=== PATIENT | male | born 1965 | race Caucasian/White ===

== ENCOUNTER 2023-05-11 07:38 | Outpatient (CLI) | payer OTHER, SELFPAY | END 2023-05-11 07:39 | disposition home or self-care (01) | LOC: INJ CL 07:39 | PROVIDERS: PCP Family Medicine; Visit Provider Family Medicine | DX: M54.16 Radiculopathy, lumbar region (principal); M51.36 Other intervertebral disc degeneration, lumbar region | CPT/HCPCS: 62323; J0702; Q9966 ==

== ENCOUNTER 2025-02-12 16:59 | Emergency (ER) | payer OTHER, SELFPAY ==
--- OUTSIDE RECORDS SUMMARY | 2025-02-12 17:02 | XMS_ITS | Clinical Summary ---
Author Organization [facility] Address [address] [place] [id number] Care Team Providers Care Selling Underwriter Name Role Phone Olga Solis MD Primary Care Provide r Allergies Active Allergy Reactions Criticality Noted Date Comments Ampicillin Hives High 07/29/2004 Atorvastatin Myalgia 08/10/2016 Nut - Unspecified Shortness Of Breath 8 Medications cetirizine (ZYRTEC) 10 mg tablet Take 1 tablet by mouth once daily. 0 016 Active CPAPIndications:O SA (obstructive sleep apnea) t CPAP machine for home use at pressure: 5-16 cmw , Heated humidifier x 1 q 5 yr, Humidifier chamber x 1 q 6 mo, Full face mask x1 q 3mos, with cushion x 1 q mo, Heated tubing x 1 q 3 mo, Headgear x 1 q 6 mo, Filters: Disposable x 2 q mo non-disposable filters x1 q 6mo, Length of Need: 99 months, Frequency of use: Daily 1 Device 11 020 Active gabapentin (NEURONTIN) 300 mg capsuleIndication s:Lumbar radiculopathy Take 1 Capsule (300 mg) by mouth at bedtime. 30 Capsule 3 024 Active EPINEPHrine (EPIPEN) 0.3 mg/0.3 mL auto-injectorIndi cations:Tree nut allergy Inject 0.3 mg (1 Pen) intramuscular each time if needed for Allergic Reaction. 2 Each 3 024 Active pantoprazole (PROTONIX) 40 mg delayed-release tabletIndications :Chronic GERD TAKE 1 TABLET (40 MG) BY MOUTH ONCE DAILY BEFORE A MEAL. IN PLACE OF PEPCID 90 Tablet 3 025 Active rosuvastatin (CRESTOR) 10 mg tabletIndications :Hyperlipidemia, unspecified hyperlipidemia type TAKE 1 TABLET BY MOUTH EVERY DAY 90 Tablet 1 025 Active celecoxib 200 mg capsuleIndication s:DDD (degenerative disc disease), lumbar TAKE 1 CAPSULE (200 MG) BY MOUTH 2 TIMES DAILY IF NEEDED FOR PAIN. 60 Capsule 1 025 Active CPAPIndications:O SA (obstructive sleep apnea) RESMED CPAP (E0601) machine for home use at pressure: 5-16 cmw , Choice of mask (A7030 or A7034) w/full face cushion (A7031) x1/mo, nasal cushion (A7032) x2/mo, or nasal pillows (A7033) x 2/mo; Length of Need: 99 months; Frequency of use: Daily 1 Each 3 025 Active celecoxib (CELEBREX) 200 mg capsuleIndication s:DDD (degenerative disc disease), lumbar Take 1 Capsule (200 mg) by mouth 2 times daily if needed for Pain. 60 Capsule 1 024 2024 Discontinued Active Problems Problem Noted Date Diagnosed Date Colon polyp 01/06/2024 Overview (01/06/2024): Colonoscopy 12/2023 TA, repeat in 5 years Facet arthropathy, cervical 11/26/2019 Headache, cervicogenic 11/26/2019 Primary osteoarthritis of both hands 05/26/2016 Vitamin D deficiency 01/18/2016 Overview (07/16/2017): Overview: level of 16 plan 5,000 I.U. otc Vitamin D3 daily then recheck vitamin D level in 2 months: Food allergy 11/29/2013 Overview (07/16/2017): Overview: peanut, almond, filbert, walnut on test Avoid pitted fruits Cook vegetables, carrots Most recent allergy testing with Dr. Kay August 10, 2016 Allergic rhinitis 09/01/2008 Overview (07/16/2017): Overview: trees on skin tests ; Allergy Seasonal Hyperlipidemia 01/04/2006 Migraine 03/17/2003 Overview (07/16/2017): Overview: onset [address] normal ; Migraine Without Aura Encounters Date Type Department Care Team Description 02/12/2025 Nurse Triage [facility] [address] [place] [address] Olga Solis MD Chest Pain 01/25/2025 Telephone [facility] [address] [place] [address] Olga Solis MD Form (CPAP) 01/13/2025 Refill [facility] [address] [place] [address] Jaime Zavaleta MD Refill Request (Celecoxib) 12/09/2024 Refill [facility] [address] [place] [address] Olga Solis MD Refill Request (Rosuvastatin) from Last 3 Months Immunizations Immunization Administration Dates Next Due AMB Influenza, IIV3 (Age >=3 years)(Flu Clinic Only) 07/19/2009 DT (Age < 7 years) 02/28/1989,11/19/1978 DTP 02/28/1989,11/19/1978 Hepatitis A (Adult) 04/12/2001,09/07/2000 Hepatitis A (Peds),Unspecified 04/12/2001,1999 Hepatitis B (Adult) 04/12/2001,11/09/2000,1999 Hepatitis B (Peds) 04/12/2001,09/07/2000 Hepatitis B, Unspecified 04/12/2001 Inactivated Polio Vaccine 11/09/2000 Influenza A (H1N1), Inactivated 10/11/2009,08/21 Influenza RIV4 (Age 18+ Year s) PRESERV FREE 07/15/2022 Influenza Virus, Unspecified 07/30/2017, 08/10/2016,07/11/2013,2008,07/17/2008,07/17/2008 Influenza, High-dose Inactivated 07/31/2018 Influenza, IIV3 (Age 6-35 mos) 07/31/2014,2012,08/07/2011 Influenza, IIV3 (Age >=3 years) 07/21/20 19,09/24/2012,07/15/2010,2008,09/07/2007,08/19/2002 Influenza, IIV4 08/12/2023,08/10/2016 Influenza, IIV4 (=>6mos) MDV 08/10/2020,07/30/20 17 Influenza, IIV4 (Age 6-35 Mos) 07/11/2013 Influenza,CCIIV4 PRESERV FREE 07/14/2018 Td (Age >=7 Years) 04/15/2016,05/05/2000 Tdap 04/15/2016,01/04/2006 Zoster (Shingrix-RZV, recombinant) 04/14/2022, Family History Medical History Relation Name Comments Cancer Brother Coronary artery disease Brother Migraines Brother Coronary artery disease Father Diabetes Father Hyperlipidemia Father Hypertension Father Stroke Father Cancer-breast Mother Multiple myeloma Other Other Other no spine/neck p roblems Migraines Sister Relation Name Status Comments Brother Father Mother Other Sister Social History Tobacco Use Types Packs/Day Years Used Date Smoking Tobacco: Never Smokeless Tobacco: Never Tobacco Cessation:Counseling Given: Yes Alcohol Use Standard Drinks/Week Comments Yes 2 (1 standard drink = 0.6 oz pur e alcohol) occ PHQ-2 Answer Date Recorded PHQ-2 TOTAL SCORE 1 07/18/2024 Social Connections Answer Date Recorded Do you often feel lonely or isolated from those around you? 0 11/19/2023 Financial Resource Strain Answer Date R ecorded Difficulty of Paying Living Expenses 3 11/19/2023 Difficulty of Paying Living Expenses Not on file 11/19/2023 Food Insecurity Answer Date Recorded Do you worry your food will run out before you are able to buy more? 1 11/19/2023 Transportation Needs Answer Date Record ed Does lack of transportation keep you from medica l appointments? 1 11/19/2023 Does lack of transportation keep you from work, meetings or getting things that you need? 1 11/19/2023 Housing Stability Answer Date Recorded What is your housing situation today? 1 11/19/2023 Utilities Answer Date Recorded Do you have trouble paying f or utilities (for example, heat, electricity, water, phone)? 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 Not on file Not on file Not on file Obstetrics History Last Filed Vital Signs Vital Sign Reading Time Taken Comments Blood Pressure 105/72 07/18/2024 7:34 AM CDT Pulse 68 07/18/2024 7:34 AM CDT Temperature 37.8 C (100.1 F) 05/25/2024 8:07 AM CDT Respiratory Rate 12 01/04/2024 9:24 AM CDT Oxygen Saturation 98% 07/18/2024 7:34 AM CDT Inhaled Oxygen Concentration - - Weight 89.8 kg (198 lb) 07/18/2024 7:34 AM CDT Height 183.5 cm (6' 0.25) 11/19/2023 8:07 AM CS T Body Mass Index 26.67 11/19/2023 8:07 AM MONITOR WORKER Plan of Treatment Upcoming Encounters Date Type Department Care Team (Late st Contact Info) Description 03/09/2025 8:25 AM CDT Office Visit [facility] [address] [place] [address] Olga Solis MD [address] [place] [address] 05/03/2025 3:30 PM CDT Office Visit [facility] [address] [place] [address] Froy Grace MD [address] [place] [address] Health Maintenance Due Date Last Done Comments Pneumococcal series for age 50+ (1 of 1 - PCV) 2014 COVID-19 vaccine series (2023- season) 2024 08/12/2023, 07/15/2022, 09/05/2021, Additional history exists BMI (ht and wt on same day) for age 18+ 11/19/2024 11/19/2023, 10/07/2022, 10/17/2021, Additional history exists RSV vaccine for adults or (1 - Risk 60-74 years 1-dose series) 2024 Influenza Vaccine (Season Ended) 2025 08/12/2023, 07/15/2022, 08/10/2020, Additional history exists Depression screening for age 12+ 07/18/2025 07/18/2024, 07/18/2024, 02/26/2023, Additional history exists Tetanus booster 04/15/2026 04/15/2016, 07/0 03/2016, 01/04/2006, Additional history exists Lipids for age 45-75 11/19/2028 11/19/2023, 02/26/2023, 10/17/2021, Additional history exists Colonoscopy through age 75 01/03/2029 01/04/2024, Tdap Completed 04/15/2016, 01/04/2006 Hepatitis C screening for ag e 18-79 Completed 10/17/2021 Zoster (shingles) series for age 50+ Completed 04/14/2022, 10/17/2021 HIV for age 15-65 Completed 02/26/2023 Procedures Procedure Name Priority Date/Time Associated Diagnosis Comments COLONOSCOPY 01/04/2024 8:28 AM CDT LIPID PANEL W REFLEX MEASURED LDL Routine 11/19/2023 9:05 AM MONITOR WORKER Hyperlipidemia, unspecified hyperlipidemia type LC HIV-1/O/2, 4TH GENERATION Routine 02/26/2023 11:04 AM CDT Screening for HIV (human immunodeficiency virus) ANTI HCV Routine 10/17/2021 10:15 AM MONITOR WORKER Encounter for hepatitis C screening test for low risk patient from Last 3 Months or Most Recently Relevant to Health Maintenance Results * COLONOSCOPY (01/04/2024 8:28 AM CDT) 01/04/2024 8:28 AM CDT Narrative Transcriptions De Dietz MD - 01/04/2024 9:14 AM CDT Patient Name: Fernando Mera Procedure Date: 01/04/2024 Gender: Male Date of : 1965 Admit Type: Outpatient Procedure: Colonoscopy Proceduralist: De Dietz MD , Ernestina Tucker (Nurse), Jennifer Rangel (Nurse) Indications/Pre-Op Diagnosis: Screening for colorectal malignant neoplasm, Last colonoscopy: date unknown (unable to locate last colonoscopy report) Medications: Fentanyl 100 micrograms IV, Midazolam 4 mgIV, The level of sedation administered wasmoderate Procedure Description: The patient had risks, benefits and alternatives explained to andgave informed consent. The patient had a stable cardiopulmonary status and judged an adequate candidate for conscious sedation. The endoscope PCF-H190L [id number] was passed through the anus andadvanced to the cecum, identified by appendiceal orifice and ileocecal valve.The colonoscopy was performed without difficulty. The patient toleratedthe procedure well. The quality of the bowel preparation was good. Anatomical landmarks were photographed. Complications: No immediate complications. Estimated Blood Loss & Specimen: Estimated blood loss: none. Specimen collected - Yes and sent to Laboratory Findings: The perianal and digital rectal examinations were normal. A 4 mm polyp was found in the descending colon. The polyp wassessile. The polyp was removed with a cold snare. Resection and retrieval were complete. The exam was otherwise without abnormality. Impressions/Post-Op Diagnosis: - One 4 mm polyp in the descending colon, removed with a cold snare. Resected and retrieved. - The examination was otherwise normal. Recommendation: - Patient has a contact number available for emergencies. The signsand symptoms of potential delayed complications were discussed with the patient. Return to normal activities tomorrow. Written discharge instructions were provided to the patient. - Resume previous diet. - Continue present medications. - Await pathology results. Moderate Sedation: A time out was performed before the procedure. Moderate (conscious) sedation was administered by the endoscopy nurse and supervised bythe endoscopist. The following parameters were monitored: oxygensaturation, heart rate, blood pressure, EKG, CO2, respiratory rate, adequacy of pulmonary ventilation and reponse to care. Please refer to the patient's medical record flowsheets and nursing notes for moderate sedation details. Total physician intraservice time was 15 minutes. De Dietz MD 01/04/2024 9:14:30 AM This report has been signed electronically. Note Initiated On: 01/04/2024 8:28 AM Procedure Code(s): --- Professional --- 62460, Colonoscopy, flexible; with removalof tumor(s), polyp(s), or other lesion(s) bysnare technique CPT copyright 2021 [employer]. All rights reserved. The codes documented in this report are preliminary and upon assistant produce manager reviewmay be revised to meet current compliance requirements. Scope In: 8:46:09 AM Scope Withdrawal Time 0 hours 8 minutes 57 seconds Scope Out: 8:59:50 AM us De Dietz MD PROCEDURE ORD Final Res ult * LIPID PANEL W REFLEX MEASURED LDL (11/19/2023 9:05 AM MONITOR WORKER) CHOLESTEROL,TOTAL 144 100 - 199 mg/dL 11/19/2023 7:18 PM MONITOR WORKER [employer] [facility] Comment: Cholesterol, Total Reference Ranges Desirable <200 mg/dL Borderline 200-239 mg/dL High >=240 mg/dL TRIGLYCERIDES 114 <150 mg/dL 11/19/2023 7:[address] [facility] HDL CHOLESTEROL 43 >40 mg/dL 7:18 PM MONITOR WORKER [facility] NON-HDL CHOLESTEROL 101 <145 mg/dl 11/19/2023 7:18 PM [facility] CHOL/HDL RATIO 3.35 <4.50 11/19/2023 7:18 PM MONITOR WORKER [facility] LDL CHOLESTEROL 78 <=130 mg/dL 11/19/2023 7:18 PM MONITOR WORKER [facility] VLDL CHOLESTEROL 23 <=30 mg/dL 11/19/2023 7:18 PM [facility] PROVIDER ORDERED STATUS RANDOM 11/19/2023 7:18 PM [facility] Blood BLOOD SPECIMEN / Unknown Venipuncture / Unknown 11/19/2023 9:05 AM MONITOR WORKER 11/19/2023 9:05 AM MONITOR WORKER Olga Solis MD CHEMISTRY Final Result Performing Organization Address City/[facility]/ZIP Co de Phone Number [facility] [address] [place] [address], * HIV-1/O/2, 4TH GENERATION (02/26/2023 11:04 AM CDT) [facility] HIV Scr 4th Gen Non Reactive Non Reactive 03/03/2023 3:08 AM CDT [facility] Comment: HIV Negative HIV-1/HIV-2 antibodies and HIV-1 p24 antigen were NOT detected. There is no laboratory evidence of HIV infection. Blood BLOOD SPECIMEN / Unknown Venipuncture / Unknown 02/26/2023 11:04 AM CDT 02/26/2023 11:05 AM CDT Narrative [facility] ([facility]) - 03/03/2023 3:08 AM CDT Performed at: [address] [place] [id number] Wood Piler: Ramón Martinez MD, Phone: [phone] Olga Solis MD LABORATORY Final Result [facility] ([facility] [address] [place] [address], [place] * ANTI HCV (10/17/2021 10:15 AM MONITOR WORKER) HEPATITIS C ANTIBODY Non-React marilyn Non-React marilyn 10/17/2021 4:49 PM MONITOR WORKER [facility] Comment:Antibodies to HCV no t detected; does not exclude the possibility of exposure to HCV. Blood BLOOD SPECIMEN / Unknown Venipuncture / Unknown 10/17/2021 10:15 AM MONITOR WORKER 10/17/2021 10:17 AM MONITOR WORKER us Olga Solis MD SEND OUTS Final Result [facility] [address] [place] [address], from Last 3 Months or Most Recently Relevant to Health Maintenance Insurance [employer] Care Teams Selling Underwriter Relationship Specialty Start Date End Date Olga Solis MD [address] [place] [id number] PCP - General Family Practice 12/06/20
--- OUTSIDE RECORDS SUMMARY | 2025-02-12 17:02 | XMS_ITS | Clinical Summary ---
Author Organization [employer] Address [address], [place] [address] Care Team Providers Care Servicer Coin Machines Name Role Phone Amparo Weiner MD Primary Care Provider [phone] Source Comments You are receiving this document as you are listed as the primary care provider,follow-up provider, or the patient has been referred to you for consultation.This is in compliance with the Medicare and[facility] EHR Incentive Program,which states Providers who transition their patient to another setting of careor provider of care or refers their patient to another provider of care shouldprovide summary care record for each transition of care or referral. [email or web address]. Allergies Active Allergy Reactions Criticality Noted Date Comments Ampicillin Hives High 07/29/2004 Atorvastatin Myalgias 08/24/2016 Medications aspirin EC 81 MG enteric coated tablet Take 1 tablet by mouth daily (every 24 hours). LW Comment:cardiop rotective 13 12/18/19 10 Active loratadine (CLARITIN) 10 MG tablet Take 10 mg by mouth daily as needed for Allergies. 01/16/20 16 Active EPINEPHrine (AUVI-Q) 0.3 MG/0.3ML injectionIndicatio ns:Food allergy Inject 0.3 mLs into the muscle as needed. Indications: ANAPHYLAXIS 1 each 2 04/15/20 16 Active cholecalciferol (VITAMIND3) 2000 UNITS tablet Take 2,000 Units by mouth daily (every 24 hours). 0 05/26/20 16 Active Probiotic Product (SUPER PROBIOTIC OR) 1/8 of tsp, powder dissolved in water Active SUMAtriptan (IMITREX) 50 MG tabletIndications: Other migraine without status migrainosus, not intractable Take 1 Tab by mouth as needed for Migraine. 9 Tab 3 08/20/20 17 Active diclofenac (VOLTAREN) 1 % gelIndications:Vashti jaden osteoarthritis of both hands Apply 2 g to skin 4 times a day. 100 g 12 08/20/20 17 Active rosuvastatin (CRESTOR) 10 MG tabletIndications: Hyperlipidemia Take 1 Tab by mouth daily. Indications: High Amount of Fats in the Blood 90 Tab 4 08/20/20 17 Active Active Problems Problem Noted Date Diagnosed Date Ulnar neuropathy of left upper extremity 017 Overview (08/20/2017): Confirmed on EMG Aortic root dilatation 01/15/2017 Overview (08/20/2017): CT IMPRESSION: 1. No evidence of pulmonary embolus 2. No evidence of aortic dissection 3. Mild dilatation of the aortic root at 3.5 cm 4. Small nodules as described. CT stable Metatarsalgia of both feet 05/26/2016 Primary osteoarthritis of both hands 05/26/2016 Vitamin D deficiency 01/18/2016 Overview (06/11/2016): level of 16 plan 5,000 I.U. otc Vitamin D3 daily then recheck vitamin D level in 2 months: Food allergy 11/29/2013 Overview (08/24/2016): peanut, almond, filbert, walnut on test Avoid pitted fruits Cook vegetables, carrots Most recent allergy testing with Dr. Kay August 10, 2016 Allergic rhinitis 09/01/2008 Overview (06/02/2017): trees on skin tests ; Allergy Seasonal Hyperlipidemia 01/04/2006 Migraine 03/17/2003 Overview (06/02/2017): onset [address] normal ; Migraine Without Aura Resolved Problems Problem Noted Date Diagnosed Date Resolved Date Pulmonary nodule 01/16/2016 08/20/2017 Overview (01/15/2017): CT IMPRESSION: 1. No evidence of pulmonary embolus 2. No evidence of aortic dissection 3. Mild dilatation of the aortic root at 3.5 cm 4. Small nodules as described. Allergic state 09/01/2008 11/29/2013 Overview (06/02/2017): LW Modifier: peanut, almond, filber, walnut on test LW Onset: ; Allergy NOS Immunizations Immunization Administration Dates Next Due DT Ped 02/28/1989,11/19/1978 Flu Vac Preserv Free (3+yrs) 07/11/2009,07/17/20 08 H1n1 Miv Sanofi 3+ Yr (Injected) 10/11/2009 HepA Adult (19+ yrs) 04/12/2001,09/07/2000 HepB Adult (Engerix-B, 20+ yrs, 3 dose series) 0 11/09/2000,09/07/2000 HepB, Unspecified Formulation 04/12/2001 IPV (Polio) 11/09/2000 Influenza ([place] Only) (Flulaval Quad 0.5, 3+ yr s) 07/30/2017 Influenza IIV4 (Quadrivalent) 0.5mL (48452) 07/13,07/11/2013 TDAP (ADACEL) 01/04/2006 Td 04/15/2016,05/05/2000 Family History Medical History Relation Name Comments Diabetes, Type II Father and brothe r Heart Attack Father in his 50s; d 72 Hypertension Father Cancer, Breast Mother age 68 Cancer Brother 1 multiple myelom a Coronary Artery Disease Brother 3 twin CABG Diabetes, Type II Brother 3 twin Kidney Disorder Brother 3 twin stones Allergies Brother 4 twin Diabetes, Type II Brother 4 twin Kidney Disorder Brother 4 twin stones peanut allergy Daughter 2 gallstones Sister 2 & brother Migraines Sister 3 Thyroid Disorder Sister 4 Relation Name Status Comments Father (Age 72) htn,aodm,b ph,[place] in 50s, heart dis. Mother (Age 68) breast ca age 60 Brother 1 (Age 67) gallstones , aodm,myeloma age 53 Brother 2 Alive aodm 57,allergi es, Dupuytren's Brother 3 twin Alive CAD 59, CABG, k idney stones Brother 4 twin Alive kidney stones Daughter 1 Alive peanut allergy Daughter 2 Sister 1 Alive migraines, chol ecystectomy,thyroid Sister 2 Sister 3 Sister 4 Social History Tobacco Use Types Packs/Day Years Used Date Smoking Tobacco: Never Smokeless Tobacco: Never Alcohol Use Standard Drinks/Week Comments Yes 1.7 (1 standard drink = 0.6 oz p ure alcohol) 2 a week Sex and Gender Information Value Date Recorded Sex Assigned at Not on file Legal Sex Male 4:21 AM CDT Gender Identity Not on file Sexual Orientation Not on file 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 Not on file Not on file Last Filed Vital Signs Vital Sign Reading Time Taken Comments Blood Pressure 104/66 08/20/2017 6:58 AM WIRE MACHINE OPERATOR Pulse 56 08/20/2017 6:58 AM WIRE MACHINE OPERATOR Temperature 37.1 C (98.8 F) 07/28/2017 1:16 PM CDT Respiratory Rate 16 07/28/2017 1:16 PM CDT Oxygen Saturation 95% 07/28/2017 1:16 PM CDT Inhaled Oxygen Concentration - - Weight 81.2 kg (179 lb) 08/20/2017 6:58 AM WIRE MACHINE OPERATOR Height 182.9 cm (6') 08/20/2017 6:58 AM WIRE MACHINE OPERATOR Body Mass Index 24.28 08/20/2017 6:58 AM WIRE MACHINE OPERATOR Plan of Treatment Health Maintenance Due Date Last Done Comments Adult Preventive Visit 1982 Pneumococcal Vaccine 50+ Yrs (1 of 1 - PCV) 2014 Zoster/Shingles Vaccine (1 of 2) 2014 PSA Screening Discussion 08/20/2018 08/20/2017 Cholesterol 08/20/2022 08/20/2017, 08/11, 01/15/2016, Additional history exists COVID-19 Vaccine ( season) 2024 Colonoscopy 11/11/2024 11/11/2014 (Completed) Influenza Vaccine (Season Ended) 2025 07/30/2017, 08/10/2016, 07/11/2013, Additional history exists DTaP/Tdap/Td Vaccine (6 - Tdap) 04/15/2026 04/15/2016, 04/15/2016, 01/04/2006, Additional history exists RSV Vaccine (1 - 1-dose 75+ series) 2039 IPV (Polio) Vaccine Aged Out 11/09/2000 No longe r eligible based on patient's age to complete this topic HepA Vaccine Aged Out 04/12/2001, 09/07/2000 No lo nger eligible based on patient's age to complete this topic HepB Vaccine Completed 04/12/2001, 10/13, 09/07/2000 HIV Screening (Preventive Services) Completed 11/29/2013 Hep C Screening (Preventive Services) Completed 11/29/2013 Hib Vaccine Aged Out No longer eligi ble based on patient's age to complete this topic MCV4 Vaccine Aged Out No longer eligi ble based on patient's age to complete this topic Meningococcal B Vaccine Aged Out No l onger eligible based on patient's age to complete this topic Procedures Procedure Name Priority Date/Time Associated Diagnosis Comments PROSTATIC SPECIFIC ANTIGEN(SCREEN) Routine 08/20/2017 7:49 AM WIRE MACHINE OPERATOR Screening for prostate cancer LIPID PANEL & DIRECT LDL (IF NEEDED) Routine 08/20/2017 7:49 AM WIRE MACHINE OPERATOR Hyperlipidemia, unspecified hyperlipidemia type HIV ANTIBODY Routine 11/29/2013 9:56 AM WIRE MACHINE OPERATOR Screening for HIV (human immunodeficiency virus) HEPATITIS C ANTIBODY, WITH REFLEX Routine 11/29/2013 9:56 AM WIRE MACHINE OPERATOR Need for hepatitis C screening test from Last 3 Months or Most Recently Relevant to Health Maintenance Results * (ABNORMAL) Lipid Panel - LDLD If Trig High (08/20/2017 7:49 AM WIRE MACHINE OPERATOR) Cholesterol 222(H) 0 - 199 mg/dL PN SOFT Triglycerides 158(H) 4 - 149 mg/dL PN SOFT HDL Cholesterol 40 >39 mg/dL PN SOFT Cholesterol/HDL Ratio Screen 5.6 PN SOFT LDL Calculated 150(H) 19 - 130 mg/dL PN SOFT Hours Fasting 12.0 PN SOFT 08/20/2017 7:49 AM WIRE MACHINE OPERATOR 08/20/2017 7:49 AM WIRE MACHINE OPERATOR Narrative PN SOFT - 08/20/2017 9:37 AM WIRE MACHINE OPERATOR Performed at [facility] ([facility] [address] [place] [address] CLIA number [id number] Amparo Weiner MD LAB_1 Final Resul t Performing Organization Address [facility] de Phone Number SOFT [address] [place] [address] * Prostatic Specific Antigen Screen (08/20/2017 7:49 AM WIRE MACHINE OPERATOR) Prostate Specific Antigen 0.5 0.0 - 4.0 ng/mL PN SOFT Comment: The Doherty PSA Chemiluminescent immunoassay is used. Results obtained with different test methods or kits cannot be used interchangeably. 08/20/2017 7:49 AM WIRE MACHINE OPERATOR 08/20/2017 10:44 AM WIRE MACHINE OPERATOR Narrative SOFT - 08/20/2017 11:38 AM WIRE MACHINE OPERATOR Performed at [facility], [address] [place] [address] CLIA number [id number] Amparo Weiner MD LAB_1 Final Resul t Performing Organization Address [facility] de Phone Number SOFT [address] [place] [address] * HIV ANTIBODY (11/29/2013 9:56 AM WIRE MACHINE OPERATOR) HIV 1/HIV 2 Non-React Non-Reacti ve HP CONVERSION 11/29/2013 9:56 AM WIRE MACHINE OPERATOR 11/29/2013 12:13 PM WIRE MACHINE OPERATOR Amparo Weiner MD LAB_1 Final Resul t Performing Organization Address [facility] Co de Phone Number HP CONVERSION * Hepatitis C Antibody, with Reflex (11/29/2013 9:56 AM WIRE MACHINE OPERATOR) Hepatitis C Antibody Non-React Non-Reacti ve HP CONVERSION 11/29/2013 9:56 AM WIRE MACHINE OPERATOR 11/29/2013 12:13 PM WIRE MACHINE OPERATOR us Amparo Weiner MD LAB_1 Final Resul t HP CONVERSION from Last 3 Months or Most Recently Relevant to Health Maintenance Insurance [employer] Care Teams Servicer Coin Machines Relationship Specialty Start Date End Date Amparo Weiner MD [address] [place] [phone] PCP - General 01/10/11
[2025-02-12 17:16] VITALS: BP 131/79; PULSE 76; RESP 18; TEMP 36.3; O2SAT 98; BMI 26.4
--- NOTE | 2025-02-12 17:51 | ED_ITS ---
HPI - General Adult General Time Seen by Provider: 17:52 Date Seen: 02/12/25 Chief complaint: Unspecified Complaint, Adult Stated complaint: Nightsweats, Sore Rib Cage Time Seen by Provider: 02/12/25 17:50 Source: patient Mode of arrival: ambulatory Limitations: no limitations History of Present Illness HPI narrative: 59-year-old male who comes in today with night sweats for about a month as well as some chest pain. Patient notes intermittent night sweats, usually once a night, not all night. The last couple of nights he has had 2 episodes night. Soaks through reassured and has to change. Denies weight loss or weight gain, abdominal pain or bloating, hemoptysis, shortness of breath, nausea, vomiting, diarrhea, black or tarry stools, swelling in the neck or armpits. No easy bruising or bleeding. No increased fatigue. Also notes some migratory tenderness of the chest wall usual along the sternal margin on the left but also goes into the upper left and right side of the chest occasionally. Take Celebrex regularly for low back pain and has been taking that for his chest pain as well. Related Data Home Medications ?Medication ?Instructions ?Recorded ?Confirmed rosuvastatin 10 mg tablet 10 mg PO QDAY 09/28/22 02/12/25 celecoxib 50 mg capsule (Celebrex) 50 mg PO BID 04/09/24 02/12/25 pantoprazole 40 mg tablet,delayed 40 mg PO DAILY 02/12/25 02/12/25 release Allergies Allergy/AdvReac Type Severity Reaction Status Date / Time ampicillin Allergy Mild Rash [facility]12[facility]25 [facility] Social History Smoking Status: Never smoker How often do you have a drink containing alcohol: never AUDIT-C Alcohol total score: 0 Non-prescribed substance use: denies use Exam Narrative: Exam Narrative: General: Well-developed and well-nourished, no acute distress Head: Atraumatic and normocephalic Eyes: Pupils are equal reactive, extraocular motions intact, conjunctiva clear ENT: External nose and ears are normal, posterior pharynx without erythema or exudate Neck: No midline cervical tenderness, full spontaneous range of motion the neck, trachea midline, no adenopathy Heart: Regular rate and rhythm no murmurs or thrills Lungs: Clear to auscultation bilaterally without wheezes or crackles Chest: Mild tenderness along the inferior left sternal border Abdomen: Soft, nontender, nondistended with active bowel sounds Musculoskeletal: No tenderness, deformity, or edema Neurologic: Awake, alert, and oriented x3, no gross focal neurologic deficits, cranial nerves intact as tested Psych: Mood and affect are appropriate Skin: No rashes Const: Vital Signs, click to edit/add: Vital Signs - 24 hr 02/12/25 17:16 Temperature 97.4 F L Pulse Rate [Pulse Oximeter] 76 Respiratory Rate 18 Blood Pressure [Ri ght Upper Arm] 131/79 Pulse Oximetry 98 Oxygen Delivery Me thod Room Air Course Course ED Course: Reviewed phone call notes from today with clinic, patient was calling regarding an upcoming visit and was referred to the emergency department for 1 month of chest pain and intermittent night sweats. Patient seen and examined, presents today with chest wall pain as well as night sweats. No weight loss, weight gain, cold or heat intolerance to suggest thyroid dysfunction. No other secondary signs or symptoms for malignancy. Consider medications although patient is not on anything other than Celebrex that typically would cause diaphoresis. Also consider inflammatory condition. Labs ordered along with chest x-ray, if these are reassuring patient can be discharged with outpatient follow-up. Reevaluation(s) Time of Reevaluation #1: 19:16 Reevaluation #1: EKG independently interpreted by me performed at 6:35 p.m. demonstrates sinus rhythm rate 71, no acute ST elevations or depressions, normal intervals, normal axis, QTC 412, MT 160. No prior for comparison. Labs independently interpreted by me with normal CBC including normal platelet count, normal basic panel, normal hepatic panel, negative troponin. CRP is 0.5. TSH is pending but patient is stable for discharge and follow up with primary care as previously planned. Chest x-ray and panel interpreted by me without acute infiltrate, effusion, or mass. Radiology interpretation with possible bronchiolitis but no evidence of this clinically. Vital Signs Vital signs: Initial Vital Signs Temperature 97.4 F L 02/12/25 17:16 Temperature Source Temporal Artery Scan 02/12/25 17:16 Pulse Rate 76 02/12/25 17:16 Pulse Rhythm Regular 02/12/25 17:16 Respiratory Rate 18 02/12/25 17:16 Blood Pressure 131/79 02/12/25 17:16 Blood Pressure Mean 96 02/12/25 17:16 Blood Pressure Position Sitting 02/12/25 17:16 Pulse Oximetry 98 02/12/25 17:16 Oxygen Delivery Method Room Air 02/12/25 17:16 Vital Signs Temperature 97.4 F L 02/12/25 17:16 Pulse Rate 76 02/12/25 17:16 Respiratory Rate 18 02/12/25 17:16 Blood Pressure 131/79 02/12/25 17:16 Pulse Oximetry 98 02/12/25 17:16 Oxygen Delivery Method Room Air 02/12/25 17:16 Temperature 97.4 F L 02/12/25 17:16 Pulse Rate 76 02/12/25 17:16 Respiratory Rate 18 02/12/25 17:16 Blood Pressure 131/79 02/12/25 17:16 Pulse Oximetry 98 02/12/25 17:16 Oxygen Delivery Method Room Air 02/12/25 17:16 Medical Decision Making Lab Data Labs: Lab Results 02/12/25 02/12/25 Range/Units 18:18 18:43 WBC 8.86 (4.50-11.00) K/uL RBC 4.83 (4.30-5.90) m/uL Hgb 16.1 (13.5-17.5) gm/dL Hct 47.0 (37.0-53.0) % MCV 97 (80-100) fL MCH 33 (26-34) pg MCHC 34 (32-36) gm/dL RDW Coeff of Ramon 12.9 (11.5-15.5) % Plt Count 236 (140-440) K/uL Neut % (Auto) 69.9 (42.0-72.0) % Lymph % (Auto) 21.2 (20-44) % Nicollet % (Auto) 6.9 (0.0-11.0) % Eos % (Auto) 1.6 (0.0-7.0) % Baso % (Auto) 0.1 (0.0-3.0) % Neut # (Auto) 6.19 (1.7-7.0) K/uL Lymph # (Auto) 1.88 (0.90-2.90) K/uL Nicollet # (Auto) 0.60 (0.00-0.90) K/UL Eos # (Auto) 0.14 (0.00-0.50) K/uL Baso # (Auto) 0.01 (0.00-0.30) K/uL Abs Immat Gran (auto) 0.03 (0.00-0.30) K/uL Imm/Tot Granulo (auto) 0.3 % Sodium 141 (135-149) mmol/L Potassium 4.0 (3.6-5.1) mmol/L Chloride 106 (96-114) mmol/L Carbon Dioxide 26 (20-32) mmol/L Anion Gap 9 (7-15) mEq/L BUN 13 (7-30) mg/dL Creatinine 0.8 (0.5-1.5) mg/dL Estimated Creat Clear 107.78 Estimated GFR 101 ml/min Glucose 100 (60-115) mg/dL Calcium 9.3 (8.4-10.6) mg/dL Total Bilirubin 0.8 (0.1-1.5) mg/dL Direct Bilirubin 0.3 (0.0-0.5) mg/dL AST 31 (12-35) U/L ALT 24 (4-50) U/L Alkaline Phosphatase 78 (40-150) U/L C-Reactive Protein 0.5 (0.5-1.0) mg/dL Total Protein 7.9 (6.0-8.3) g/dL Albumin 4.8 (3.3-5.0) g/dL POC Troponin I 0.00 L (0.01-0.04) ng/ml Discharge Plan Discharge Clinical Impression: Chest wall pain, Night sweats Patient Disposition: Home, Self-Care Instructions: Chest Wall Pain (ED) Additional Instructions: No definite cause for his symptoms is found today. Follow-up with your primary care provider as scheduled for further evaluation treatment. Activity Level: No Restrictions Discharge Diet: Regular Prescriptions: No Action rosuvastatin 10 mg tablet 10 mg PO QDAY celecoxib [Celebrex] 50 mg capsule 50 mg PO BID pantoprazole 40 mg tablet,delayed release (DR/EC) 40 mg PO DAILY Follow Up/Referrals: Olga Solis MD [Primary Care Provider] - Stand Alone Forms: [employer] Info Instructions
--- NOTE | 2025-02-12 18:18 | CRLHL7_ITS ---
For Patients: As a result of the Century Cures Act, medical imaging exams and procedure reports are released immediately into your electronic medical record. You may view this report before your referring provider. If you have questions, please contact your health care provider. INDICATION: Chest pain. Night sweats. TECHNIQUE: Chest 2 views. COMPARISON: 09/28/2022. FINDINGS: Cardiovascular and mediastinum: Heart size is normal. Unremarkable mediastinum. Lungs and pleural spaces: Questionable area of bronchiolitis in the right infrahilar region. Remainder of the lungs and pleural spaces are clear. No pneumothorax. Bones and soft tissues: No significant findings. IMPRESSION: Possible right lower lobe bronchiolitis. This could all represent crowding of normal vasculature. Remainder of the exam is unremarkable. Dictated by Anthony Cruz MD @ 02/12/2025 7:13:03 PM (Electronically Signed)
--- OUTSIDE RECORDS SUMMARY | 2025-02-12 18:30 | XMS_ITS | Clinical Summary ---
Author Organization [facility] Address [address] [address] Care Team Providers Care Powerhouse Tender Name Role Phone Amparo Weiner MD Primary Care Provider [phone] Source Comments You are receiving this document as you are listed as the primary care provider,follow-up provider, or the patient has been referred to you for consultation.This is in compliance with the Medicare and[facility] EHR Incentive Program,which states Providers who transition their patient to another setting of careor provider of care or refers their patient to another provider of care shouldprovide summary care record for each transition of care or referral. [employer] Allergies Active Allergy Reactions Criticality Noted Date [...] Unspecified Formulation 04/12/2001 IPV (Polio) 11/09/2000 Influenza ([place] Only) (Flulaval Quad 0.5, 3+ yr s) 07/30/2017 Influenza IIV4 (Quadrivalent) 0.5mL (89741) 07/13,07/11/2013 TDAP (ADACEL) 01/04/2006 Td 04/15/2016,05/05/2000 Family [...] Name Status Comments Father (Age 72) htn,aodm,b ph,[place] in 50s, heart dis. 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 Not on file Not on file Last Filed Vital Signs Vital Sign Reading Time Taken Comments Blood Pressure 104/66 08/20/2017 6:58 AM METAL BUILDING ASSEMBLER Pulse 56 08/20/2017 6:58 AM METAL BUILDING ASSEMBLER Temperature 37.1 C (98.8 F) 07/28/2017 1:16 PM CDT Respiratory Rate 16 07/28/2017 1:16 PM CDT Oxygen Saturation 95% 07/28/2017 1:16 PM CDT Inhaled Oxygen Concentration - - Weight 81.2 kg (179 lb) 08/20/2017 6:58 AM METAL BUILDING ASSEMBLER Height 182.9 cm (6') 08/20/2017 6:58 AM METAL BUILDING ASSEMBLER Body Mass Index 24.28 08/20/2017 6:58 AM METAL BUILDING ASSEMBLER Plan of Treatment Health Maintenance Due Date [...] PROSTATIC SPECIFIC ANTIGEN(SCREEN) Routine 08/20/2017 7:49 AM METAL BUILDING ASSEMBLER Screening for prostate cancer LIPID PANEL & DIRECT LDL (IF NEEDED) Routine 08/20/2017 7:49 AM METAL BUILDING ASSEMBLER Hyperlipidemia, unspecified hyperlipidemia type HIV ANTIBODY Routine 11/29/2013 9:56 AM METAL BUILDING ASSEMBLER Screening for HIV (human immunodeficiency virus) HEPATITIS C ANTIBODY, WITH REFLEX Routine 11/29/2013 9:56 AM METAL BUILDING ASSEMBLER Need for hepatitis C screening test from Last 3 Months or Most Recently Relevant to Health Maintenance Results * (ABNORMAL) Lipid Panel - LDLD If Trig High (08/20/2017 7:49 AM METAL BUILDING ASSEMBLER) Cholesterol 222(H) 0 - 199 mg/dL PN SOFT Triglycerides 158(H) 4 - 149 mg/dL PN SOFT HDL Cholesterol 40 >39 mg/dL PN SOFT Cholesterol/HDL Ratio Screen 5.6 PN SOFT LDL Calculated 150(H) 19 - 130 mg/dL PN SOFT Hours Fasting 12.0 PN SOFT 08/20/2017 7:49 AM METAL BUILDING ASSEMBLER 08/20/2017 7:49 AM METAL BUILDING ASSEMBLER Narrative PN SOFT - 08/20/2017 9:37 AM METAL BUILDING ASSEMBLER Performed at [facility], [address] [place] [address] CLIA number [id number] Amparo Weiner MD LAB_1 Final Resul t Performing Organization Address [facility] de Phone Number SOFT [address] [place] [address] * Prostatic Specific Antigen Screen (08/20/2017 7:49 AM METAL BUILDING ASSEMBLER) Prostate Specific Antigen 0.5 0.0 - 4.0 ng/mL PN SOFT Comment: The Doherty PSA Chemiluminescent immunoassay is used. Results obtained with different test methods or kits cannot be used interchangeably. 08/20/2017 7:49 AM METAL BUILDING ASSEMBLER 08/20/2017 10:44 AM METAL BUILDING ASSEMBLER Narrative SOFT - 08/20/2017 11:38 AM METAL BUILDING ASSEMBLER Performed at [facility], [address] [place] [address] CLIA number [id number] Amparo Weiner MD LAB_1 Final Resul t Performing Organization Address [facility] de Phone Number SOFT [address] [place] [address] * HIV ANTIBODY (11/29/2013 9:56 AM METAL BUILDING ASSEMBLER) HIV 1/HIV 2 Non-React Non-Reacti ve HP CONVERSION 11/29/2013 9:56 AM METAL BUILDING ASSEMBLER 11/29/2013 12:13 PM METAL BUILDING ASSEMBLER Amparo Weiner MD LAB_1 Final Resul t Performing Organization Address [facility] Co de Phone Number HP CONVERSION * Hepatitis C Antibody, with Reflex (11/29/2013 9:56 AM METAL BUILDING ASSEMBLER) Hepatitis C Antibody Non-React Non-Reacti ve HP CONVERSION 11/29/2013 9:56 AM METAL BUILDING ASSEMBLER 11/29/2013 12:13 PM METAL BUILDING ASSEMBLER us Amparo Weiner MD LAB_1 Final Resul t HP CONVERSION from Last 3 Months or Most Recently Relevant to Health Maintenance Insurance [employer] Care Teams Powerhouse Tender Relationship Specialty Start Date End Date Amparo Weiner MD [address] [place] [phone] PCP - General 01/10/11
--- OUTSIDE RECORDS SUMMARY | 2025-02-12 18:30 | XMS_ITS | Clinical Summary ---
Author Organization [email or web address] [facility] [employer] Address [address] [place] [id number] Care Team Providers Care Manager Film Name Role Phone Olga Solis MD Primary [...] Department Care Team Description 02/12/2025 Nurse Triage [facility] [address] [place] [address] Olga Solis MD Chest Pain 01/25/2025 Telephone [facility] [address] [place] [address] Olga Solis MD Form (CPAP) 01/13/2025 Refill [facility] [address] [place] [address] Jaime Zavaleta MD Refill Request (Celecoxib) 12/09/2024 Refill [facility] [address] [place] [address] Olga Solis MD Refill Request (Rosuvastatin) from [...] on file Legal Sex Male 7:26 AM [employer] Gender Identity Not on file Sexual Orientation [...] Body Mass Index 26.67 11/19/2023 8:07 AM [employer] Plan of Treatment Upcoming Encounters Date Type Department Care Team (Late st Contact Info) Description 03/09/2025 8:25 AM CDT Office Visit [facility] [address] [place] [address] Olga Solis MD [address] [place] [address] 05/03/2025 3:30 PM CDT Office Visit [facility] [address] [place] [address] Froy Grace MD [address] [place] [address] Health Maintenance Due Date Last Done Comments [...] REFLEX MEASURED LDL Routine 11/19/2023 9:05 AM [employer] Hyperlipidemia, unspecified hyperlipidemia type LC HIV-1/O/2, 4TH GENERATION Routine 02/26/2023 11:04 AM CDT Screening for HIV (human immunodeficiency virus) ANTI HCV Routine 10/17/2021 10:15 AM [employer] Encounter for hepatitis C screening test for [...] candidate for conscious sedation. The endoscope [id number] was passed through the anus andadvanced to [...] physician intraservice time was 15 minutes. De Ditez MD 01/04/2024 9:14:30 AM This report has been signed electronically. Note Initiated On: 01/04/2024 8:28 AM Procedure Code(s): --- Professional --- 54103, Colonoscopy, flexible; with removalof tumor(s), polyp(s), or other lesion(s) bysnare technique CPT copyright 2021 [employer]. All rights reserved. The codes documented in this report are preliminary and upon medical billing coder reviewmay be revised to meet current compliance requirements. Scope In: 8:46:09 AM Scope Withdrawal Time 0 hours 8 minutes 57 seconds Scope Out: 8:59:50 AM us De Dietz MD PROCEDURE ORD Final Res ult * LIPID PANEL W REFLEX MEASURED LDL (11/19/2023 9:05 AM [employer]) CHOLESTEROL,TOTAL 144 100 - 199 mg/dL 11/19/2023 7:18 PM [employer] Comment: Cholesterol, Total Reference Ranges Desirable <200 mg/dL Borderline 200-239 mg/dL High >=240 mg/dL TRIGLYCERIDES 114 <150 mg/dL 11/19/2023 7:18 PM [employer] [facility] [employer] [facility] HDL CHOLESTEROL 43 >40 mg/dL 7:18 PM [employer] [facility] NON-HDL CHOLESTEROL 101 <145 mg/dl 11/19/2023 7:18 PM [facility] CHOL/HDL RATIO 3.35 <4.50 11/19/2023 7:18 PM [employer] [facility] LDL CHOLESTEROL 78 <=130 mg/dL 11/19/2023 7:18 PM [employer] [facility] VLDL CHOLESTEROL 23 <=30 mg/dL 11/19/2023 7:18 PM [facility] PROVIDER ORDERED STATUS RANDOM 11/19/2023 7:18 PM [facility] Blood BLOOD SPECIMEN / Unknown Venipuncture / Unknown 11/19/2023 9:05 AM [employer] 11/19/2023 9:05 AM [employer] Olga Solis MD CHEMISTRY Final Result Performing Organization Address City/[facility]/ZIP Co de Phone Number [facility] [address] [place] [address], * HIV-1/O/2, 4TH GENERATION (02/26/2023 11:04 AM CDT) [facility] HIV Scr 4th Gen Non Reactive Non Reactive 03/03/2023 3:08 AM CDT [facility] Comment: HIV Negative HIV-1/HIV-2 antibodies and HIV-1 p24 antigen were NOT detected. There is no laboratory evidence of HIV infection. Blood BLOOD SPECIMEN / Unknown Venipuncture / Unknown 02/26/2023 11:04 AM CDT 02/26/2023 11:05 AM CDT Narrative [facility] - 03/03/2023 3:08 AM CDT Performed at: [address] [place] [id number] Windlasser: Ramón Martinez MD, Phone: [phone] Olga Solis MD LABORATORY Final Result [facility] [address] [place] [address], [place] * ANTI HCV (10/17/2021 10:15 AM [employer]ER) HEPATITIS C ANTIBODY Non-React marilyn Non-React marilyn 10/17/2021 4:49 PM [employer]ER [facility] Comment:Antibodies to HCV no t detected; does not exclude the possibility of exposure to HCV. Blood BLOOD SPECIMEN / Unknown Venipuncture / Unknown 10/17/2021 10:15 AM [employer]ER 10/17/2021 10:17 AM [employer] S[employer]ER us Olga Solis MD SEND OUTS Final Result [facility] [address] [place] [address], from Last 3 Months or Most Recently Relevant to Health Maintenance Insurance [facility] Care Teams Manager Film Relationship Specialty Start Date End Date Olga Solis MD [address] [place] [id number] PCP - General Family Practice 12/06/20
[2025-02-12 18:51] LABS: Basophils Absolute Auto 0.01 K/uL (0.00-0.30); Basophils Percent Auto 0.1 % (0.0-3.0); Eosinophils Absolute Auto 0.14 K/uL (0.00-0.50); Eosinophils Percent Auto 1.6 % (0.0-7.0); Hemoglobin* 16.1 gm/dL (13.5-17.5); Immature Granulocytes Abs Auto 0.03 K/uL (0.00-0.30); Immature Granulocytes Pct Auto 0.3 %; Lymphocytes Absolute Auto 1.88 K/uL (0.90-2.90); Lymphocytes Percent Auto 21.2 % (20-44); Mean Corpuscular HGB Conc 34 gm/dL (32-36); Mean Corpuscular Hemoglobin 33 pg (26-34); Mean Corpuscular Volume 97 fL (80-100); Monocytes Percent Auto 6.9 % (0.0-11.0); Neutrophils Absolute Auto 6.19 K/uL (1.7-7.0); Neutrophils Percent Auto 69.9 % (42.0-72.0); Platelet Count* 236 K/uL (140-440); RDW Coefficient of Variation % 12.9 % (11.5-15.5); Red Blood Count 4.83 m/uL (4.30-5.90); White Blood Count* 8.86 K/uL (4.50-11.00)
[2025-02-12 19:03] LABS: Slide Review Reflex No
[2025-02-12 19:05] LABS: Albumin* 4.8 g/dL (3.3-5.0); Chloride* 106 mmol/L (96-114); Sodium* 141 mmol/L (135-149)
[2025-02-12 19:07] LABS: Blood Urea Nitrogen* 13 mg/dL (7-30); Creatinine* 0.8 mg/dL (0.5-1.5); Est. Creatinine Clearance* 107.78; Estimated Glomerular Filt Rate 101 ml/min
[2025-02-12 19:08] LABS: Alanine Aminotransferase* 24 U/L (4-50); Alkaline Phosphatase* 78 U/L (40-150); Anion Gap 9 mEq/L (7-15); Aspartate Amino Transferase* 31 U/L (12-35); Bilirubin Direct* 0.3 mg/dL (0.0-0.5); Bilirubin Total* 0.8 mg/dL (0.1-1.5); Calcium* 9.3 mg/dL (8.4-10.6); Carbon Dioxide* 26 mmol/L (20-32); Glucose* 100 mg/dL (60-115); Total Protein* 7.9 g/dL (6.0-8.3)
[2025-02-12 19:11] LABS: C Reactive Protein* 0.5 mg/dL (0.5-1.0)
== END 2025-02-12 19:44 | disposition home or self-care (01) ==
PROVIDERS: Emergency Provider Family Medicine; PCP Family Medicine
DX: R07.89 Other chest pain (principal); R61 Generalized hyperhidrosis
CPT/HCPCS: 36415; 71046; 80048; 80076; 84443; 84484; 85025; 86140; 93005; 99284